=== PATIENT | female | born 1970 | race Caucasian/White ===

== ENCOUNTER 2022-08-07 15:58 | Emergency (ER) | payer MEDICAID ==
[~2022-08-07] VITALS: Ht 154.9 cm; Wt 93.0 kg
[2022-08-07 16:01] VITALS: BP 169/95
== END 2022-08-07 17:55 | disposition left against medical advice (07) ==
LOC: ER 15:58
DX: Z53.21 Procedure and treatment not carried out due to patient leaving prior to being seen by health care provider (principal)